=== PATIENT | male | born 1960 | race Caucasian/White ===

== ENCOUNTER 2019-08-06 10:29 | Outpatient (CLI) | payer OTHER, SELFPAY ==
--- NOTE | ~2019-08-06 | CT_ITS ---
EXAMINATION: CTA chest DATE: 08/06/2019 11:17 INDICATION: Aortic aneurysm of unspecified site without rupture TECHNIQUE: Computed tomography (CT) of the chest was performed with 100 cc Omnipaque 350 intravenous contrast. Automated exposure control and iterative reconstruction technique were employed. Exam dose: 688.95 mGy-cm total exam DLP. COMPARISON: None FINDINGS: There is aneurysm of the ascending thoracic aortic which measures up to 4.3 cm diameter. Th ere is normal caliber at the aortic arch and descending thoracic aorta. There is normal caliber of th e abdominal aorta into the proximal infrarenal area. There is no evidence of thoracic aortic or abdom inal aortic dissection or rupture. No hilar or mediastinal mass lesion or lymphadenopathy. Normal heart size. No pericardial or pleural effusion. The lungs are clear of infiltrate or consolidation or mass density. Normal morphology of the adrenal glands. Hepatic steatosis. The gallbladder is present. No bile duct or pancreatic duct dilatation. No hepatic , pancreatic, splenic space-occupying mass lesion. Small sliding hiatal hernia. IMPRESSION: 4.3 cm diameter thoracic ascending aortic aneurysm Reviewed, dictated and finalized at [facility] Reviewed, dictated and finalized at [facility].
[2019-08-06 11:08] LABS: Estimated Glomerular Filt Rate > 60
== END 2019-08-06 10:30 | disposition home or self-care (01) ==
PROVIDERS: PCP Internal Medicine; Visit Provider Internal Medicine
DX: I71.4 Abdominal aortic aneurysm, without rupture (principal)
CPT/HCPCS: 36415; 71275; Q9967

== ENCOUNTER 2019-10-24 15:25 | Emergency (ER) | payer OTHER, SELFPAY ==
[2019-10-24 15:42] VITALS: BP 118/99; PULSE 93; RESP 18; TEMP 36.7; O2SAT 96
[2019-10-24 15:47] VITALS: BP 128/88; PULSE 94; RESP 12; O2SAT 94
[2019-10-24] MEDS: EPINEPHrine HCL INJ 1 MG/ML AMPUL 0.3 MG IM (16:01)
[2019-10-24] MEDS: FAMOTIDINE 20 MG/2 ML VIAL IV PUSH (16:01)
[2019-10-24] MEDS: diphenhydrAMINE HCl INJ 50 MG/ML VIAL 25 MG IV PUSH (16:01)
[2019-10-24] MEDS: predniSONE 20 MG TABLET 60 MG PO (16:02)
--- NOTE | 2019-10-24 16:05 | ED.ALLEREA ---
HPI - Allergic Reaction General Chief complaint: Allergic Reaction Stated complaint: allergic reactoin Time Seen by Provider: 10/24/19 15:53 History of Present Illness HPI narrative: Stung on the right shoulder by a wasp around 1330 today. Since that time has developed diffuse itchy rash. He now feels like he is starting to swell in his throat. No SOB or difficulty breathing. He has no history of anaphylaxis or severe allergic reaction. Related Data Home Medications Medication Instructions Recorded Confirmed aspirin 81 mg tablet,delayed 81 mg PO DAILY 08/03/19 release Allergies Allergy/AdvReac Type Severity Reaction Status Date / Time amoxicillin Allergy Unknown Unknown Verified 10/24/19 15:46 venom-wasp protein Allergy Unknown Verified 10/24/19 15:46 Review of Systems Review of Systems: All systems reviewed & are unremarkable except as noted in HPI and below Constitutional: Constitutional: Denies fever(s) Cardiovascular: Cardiovascular: Denies chest pain Respiratory: Respiratory: Denies dyspnea Gastrointestinal: Gastrointestinal: Denies abdominal pain and Denies nausea Integumentary/Breasts: Skin/Breast: Reports rash Neurologic: Denies numbness and Denies weakness Allergic/Immunologic: Allergic/Immunologic: Denies lip swelling, Reports throat swelling and Denies tongue swelling PMFSH Past Medical History Medical History (Updated 10/24/19 @ 17:02 by Adebayo Winters MD) Aortic aneurysm Chronic GERD Social History Social History Smoking status: Former smoker Alcohol intake: never Substance use: never Gender identity (if verbalized by the patient): Male Sexual Orientation (if Verbalized by the Patient): Straight or Heterosexual Exam Const: General: healthy appearing, no acute distress and alert Orientation/consciousness: patient oriented x3 HENMT: Head: normal to inspection Neck: Neck: no lymphadenopathy Other: mild fullness. no stridor Chest: Chest palpation & inspection: no tenderness Resp: Effort & Inspection: normal respiratory effort Auscultation: clear to auscultation bilaterally, no rales, no rhonchi and no wheezes Cardio: Jugular venous distension: no JVD Rate: regular rate Rhythm: regular rhythm Heart sounds: no murmurs GI: Inspection: non-distended GI Palp: Yes Soft to palpation and No Tenderness to palpation present (GI) Skin: Other: diffuse urticaria Neuro: General: patient oriented x3 and moves all extremities Speech: normal speech Extrem: General: no edema Psych: Appearance: well kempt Affect: normal affect Course Course Emergency Course: On reeavlauation his symptoms have nearly resolved. He asked to be discharged. I informed him of the possiblity of a biphasic reaction. He expressed understanding and said that he would like to be discharged anyway. He agreed to make sure he was not alone for the next several hours and would come back if symptoms return. Vital Signs Vital signs: Vital Signs Temperature 36.7 C 10/24/19 15:42 Pulse Rate 93 10/24/19 15:42 Respiratory Rate 18 10/24/19 15:42 Blood Pressure 118/99 H 10/24/19 15:42 Pulse Oximetry 96 10/24/19 15:42 Temperature 36.7 C 10/24/19 15:42 Pulse Rate 85 10/24/19 16:11 Respiratory Rate 17 10/24/19 16:11 Blood Pressure 127/94 H 10/24/19 16:11 Pulse Oximetry 96 10/24/19 16:11 MDM - Allergic Reaction MDM Narrative Medical decision making narrative: Will treat for anaphylaxis and observe Medical Records Attestation: I reviewed the patient's medical records. Critical Care Time Critical Care Time Critical Care Time: Yes Total Critical Care Time: 45 Discharge Plan Discharge Clinical Impression: Anaphylaxis Qualifiers: Encounter type: initial encounter Qualified Code(s): T78.2XXA - Anaphylactic shock, unspecified, initial encounter Patient Disposition: Home, Self-Care Condition: Stab
[2019-10-24 16:11] VITALS: BP 127/94; PULSE 85; RESP 17; O2SAT 96
[2019-10-24 17:25] VITALS: BP 133/82; PULSE 91; RESP 16; O2SAT 94
== END 2019-10-24 17:28 | disposition home or self-care (01) ==
PROVIDERS: Emergency Provider Emergency Medicine; PCP Internal Medicine
DX: T63.461A Toxic effect of venom of wasps, accidental (unintentional), initial encounter (principal); T78.2XXA Anaphylactic shock, unspecified, initial encounter; K21.9 Gastro-esophageal reflux disease without esophagitis; Z87.891 Personal history of nicotine dependence
CPT/HCPCS: 96372; 96374; 96375; 99284; J0171; J1200; J7512

== ENCOUNTER 2020-02-11 00:21 | Outpatient (CLI) | payer OTHER, SELFPAY ==
[2020-02-11 19:24] LABS: SARS-CoV-2 RNA PCR Negative
== END 2020-02-11 00:22 | disposition home or self-care (01) ==
LOC: ANHCOVIDDT 00:21
PROVIDERS: PCP Internal Medicine; Visit Provider Internal Medicine Gastroenterology
DX: Z01.818 Encounter for other preprocedural examination (principal); Z20.828 Contact with and (suspected) exposure to other viral communicable diseases
CPT/HCPCS: 87635; C9803; U0003

== ENCOUNTER 2020-02-14 01:16 | Day surgery (SDC) | payer OTHER, SELFPAY ==
[2020-02-07 13:55] VITALS: BMI 30.8
[2020-02-14 06:45] VITALS: BP 128/89; PULSE 93; RESP 20; TEMP 36.3; O2SAT 97
[2020-02-14 06:47] VITALS: BMI 29.9
[2020-02-14] MEDS: LACTATED RINGERS 1,000 ML 150 ML IV CONT (06:55)
--- NOTE | 2020-02-14 07:54 | WPDANESEPPF ---
Anes - Initial Pre Proc Eval Procedure: Operation Date: 02/14/20 08:00 Proposed Procedures p Esophagogastroduodenoscopy & Screening Colon - Rigo Freed MD Date/Time: 02/14/20 07:54 Surgeon: Rigo Freed MD Pre Op Diagnosis: GERD, Neoplasm Screening Patient Data Age: 59 Gender: M Height: 6 ft 2 in Weight: 105.8 kg Last Vital Signs Temp 97.4 F L 02/14/20 06:45 Pulse 93 02/14/20 06:45 Resp 20 02/14/20 06:45 BP 128/89 02/14/20 06:45 Pulse Ox 97 02/14/20 06:45 Allergies Allergy/AdvReac Type Severity Reaction Status Date / Time amoxicillin Allergy Unknown Unknown Verified 02/14/20 06:41 venom-wasp protein Allergy Unknown Verified 02/14/20 06:41 Home Medications Medication Instructions Recorded Confirmed Type aspirin 81 mg tablet,delayed 81 mg PO DAILY 08/03/19 02/07/20 History release omeprazole 40 mg capsule,delayed 40 mg PO DAILY #30 cap 08/03/19 02/07/20 Rx release sodium,potassium,mag sulfates 17.5 See Rx Instructions PO .COMPLEX 01/25/20 02/07/20 Rx gram-3.13 gram-1.6 gram oral soln #354 ml Patient hx anesthesia problems: none Family hx anesthesia problems: none PMFSH Past Medical History Medical History (Updated 02/14/20 @ 07:54 by Aaron Andrews MD) Aortic aneurysm Chronic GERD KAMRAN (obstructive sleep apnea) Social History Social History Smoking packs per day: 1 Smoking cigarettes per day: 20.0 Years smoked: 6 Smoking pack-years: 6.00 Smoking status: Current every day smoker Tobacco type: cigarettes Alcohol intake: current Drinks per week: 1 Alcohol use details: once every 2 weeka Substance use: never Living arrangements: with family Gender identity (if verbalized by the patient): Male Spiritual care concerns: No Anes - Eval Final PreProcedure Day of Procedure 02/14/20 07:54 Patient weight: overweight Heart: regular rate and rhythm Lungs: clear to auscultation Airway: Mallampati scale class III Neurological: alert and oriented Last oral intake: >/= 8 hours ASA classification: III Emergent: no Anesthetic plan: proceed Anesthesia type and monitoring: general GIVS and standard monitoring Informed Consent: The patient's anesthetic plan and its attendant risks and benefits were discussed with the patient/family/POA. Questions were solicited and answers provided to the satisfaction of the patient/family/POA.
--- NOTE | 2020-02-14 07:56 | PM.HPGS ---
History of Present Illness History of Present Illness Consent: Risks, benefits, and alternatives have been discussed and questions answered. Patient agrees to proceed with procedure. Chief complaint: GERD, Neoplasm Screening Narrative: Gabe Chowdary is a 59 year old male with gerd but controlled with omeprazole, never had EGD. Also colon polyps. Review of Systems Constitutional: Constitutional: Denies headache(s) and Denies weakness Eyes: Eyes: Denies blurry vision ENT: Reports Normal hearing present, Denies headache(s) and Denies neck pain Cardiovascular: Cardiovascular: Denies chest pain and Denies dyspnea Respiratory: Respiratory: Denies dyspnea Gastrointestinal: Gastrointestinal: Reports no additional gastrointestinal complaints Genitourinary: Genitourinary: Denies dysuria Musculoskeletal: Musculoskeletal: Denies neck pain Integumentary/Breasts: Skin/Breast: Denies dry skin Neurologic: Reports Normal hearing present, Denies headache(s) and Denies weakness Psychiatric: Psychiatric: Denies anxiety Endocrine: Endocrine: Denies change in body appearance Hematologic/Lymphatic: Hematologic/Lymphatic: Denies easy bleeding Allergic/Immunologic: Allergic/Immunologic: Denies urticaria PMF Past Medical History Medical History (Updated 02/14/20 @ 07:54 by Aaron Andrews MD) Aortic aneurysm Chronic GERD KAMRAN (obstructive sleep apnea) Social History Social History Smoking packs per day: 1 Smoking cigarettes per day: 20.0 Years smoked: 6 Smoking pack-years: 6.00 Smoking status: Current every day smoker Tobacco type: cigarettes Alcohol intake: current Drinks per week: 1 Alcohol use details: once every 2 weeka Substance use: never Living arrangements: with family Gender identity (if verbalized by the patient): Male Spiritual care concerns: No Meds Home Medications and Allergies Home Medications Medication Instructions Recorded Confirmed Type aspirin 81 mg tablet,delayed 81 mg PO DAILY 08/03/19 02/07/20 History release omeprazole 40 mg capsule,delayed 40 mg PO DAILY #30 cap 08/03/19 02/07/20 Rx release sodium,potassium,mag sulfates 17.5 See Rx Instructions PO .COMPLEX 01/25/20 02/07/20 Rx gram-3.13 gram-1.6 gram oral soln #354 ml Allergies Allergy/AdvReac Type Severity Reaction Status Date / Time amoxicillin Allergy Unknown Unknown Verified 02/14/20 06:41 venom-wasp protein Allergy Unknown Verified 02/14/20 06:41 Vital Signs Vital Signs - 24 hr 02/14/20 06:45 Temperature 97.4 F L Pulse Rate 93 Respiratory Rate 20 Blood Pressure 128/89 Pulse Oximetry 97 Exam Const: General: comfortable and no acute distress HENMT: General nose exam: Normal nares present Eyes: General: appearance normal, both eyes and all related structures Neck: Neck: no JVD Resp: Auscultation: clear to auscultation bilaterally Cardio: Rate: regular rate Rhythm: regular rhythm GI: Inspection: non-distended GI Palp: Yes Soft to palpation Skin: General skin exam: normal color Neuro: General: gait normal Speech: normal speech Extrem: General: normal to inspection Psych: Mental Status: mental status grossly normal Assessment and Plan Assessment and plan (1) Chronic GERD: Code(s): K21.9 - Gastro-esophageal reflux disease without esophagitis Status: Acute Assessment and Plan: egd with bx (2) Hx of adenomatous colonic polyps: Code(s): Z86.010 - Personal history of colonic polyps Status: Acute Assessment and Plan: due to have a colonoscopy
[2020-02-14 08:31] VITALS: BP 91/59; PULSE 79; RESP 16; O2SAT 96
[2020-02-14 08:41] VITALS: BP 98/69; PULSE 76; RESP 18; O2SAT 96
[2020-02-14 08:51] VITALS: BP 113/74; PULSE 78; RESP 20; O2SAT 98
== END 2020-02-14 09:12 | disposition home or self-care (01) ==
PROVIDERS: PCP Internal Medicine; Visit Provider Internal Medicine Gastroenterology
PROC: 0DJ08ZZ Inspection of Upper Intestinal Tract, Via Natural or Artificial Opening Endoscopic (ICD-10-PCS; CPT 43235; principal; 2020-02-14 08:00)
DX: Z12.11 Encounter for screening for malignant neoplasm of colon (principal); K63.5 Polyp of colon; K64.4 Residual hemorrhoidal skin tags; K64.8 Other hemorrhoids; K29.50 Unspecified chronic gastritis without bleeding; K21.00 Gastro-esophageal reflux disease with esophagitis, without bleeding; K44.9 Diaphragmatic hernia without obstruction or gangrene; G47.33 Obstructive sleep apnea (adult) (pediatric); F17.210 Nicotine dependence, cigarettes, uncomplicated; Z79.82 Long term (current) use of aspirin
CPT/HCPCS: 45380; 43239; 88305; J2704; J7120

== ENCOUNTER 2020-06-30 15:59 | Observation (INO) | payer OTHER, SELFPAY ==
[2020-06-30] VITALS (12 sets, daily range): BP systolic 118–151; BP diastolic 71–98; PULSE 63–85; RESP 14–21; TEMP 36.4–36.8; O2SAT 97–99; BMI 30.7
--- NOTE | ~2020-06-30 | XR_ITS ---
EXAMINATION: XR chest 2V EXAM DATE: 06/30/2020 16:41 INDICATION: Left-sided chest pain, shortness of breath, symptoms 3 days. History hypertension aneurys m. TECHNIQUE: Frontal and lateral projections of the chest obtained and reviewed. Correlation is made to CTA chest 08/06/2019. FINDINGS: Bulging ascending aortic contour, patient's known ascending aortic aneurysm, dimension obt ained last year at 4.3 cm. The lungs are clear. There are no pleural effusions. The cardiomediastin al silhouette is within normal limits. There is no pneumothorax suspected. The bones and soft tissu es are unremarkable. IMPRESSION: Ascending aortic aneurysm. No acute cardiopulmonary findings. Reviewed, dictated and finalized at location [facility].
--- NOTE | ~2020-06-30 | CT_ITS ---
EXAMINATION: CTA chest EXAM DATE: 07/01/2020 10:48 INDICATION: Left-sided chest pain, known aortic aneurysm. TECHNIQUE: Spiral CT of the chest following intravenous injection of 100 mL Omnipaque 350. Axial, co shaniqua and sagittal images were reviewed. Maximum intensity projection 3-D reconstructions of the aort a were created by the technologist on dedicated workstation. Coronal maximum intensity pixel images of chest reviewed. The dose-length product (DLP) for this examination was 902.69 mGy-cm. The exposu re was tailored according to patient size (auto mA exposure control), and iterative reconstruction (A SIR) was used as additional dose reduction technique. Comparison is made to prior examination from . FINDINGS: The ascending aorta measures 4.8 cm as measured just below the level of the right main pul monary artery. This is unchanged compared to previous examination when measured at the same level. Th ere is no aortic dissection. Interval development of left upper lobe nodule measuring 1.2 cm, 20 Hounsfield units which is relativ esther low density for malignancy. Could be postinfectious or hamartoma. However given that it is new pr imary lung cancer should be considered; recommend PET/CT for further evaluation. The lungs are otherw ise clear. There are no pleural or pericardial effusions. Tracheobronchial tree is patent. There is no media stinal, hilar or axillary lymphadenopathy. There is no pneumothorax. Heart normal in size. Ther e is mild coronary arterial calcification, arterial sclerosis. There is hepatic steatosis. Small [place] within T11 unchanged. IMPRESSION: 1. Interval development of left upper lobe nodule, possible lung cancer. Recommend PET/CT for furthe r evaluation. 2. Stable ascending aortic fusiform 4.8 cm aneurysm. 3. Hepatic steatosis. 4. No acute findings. Reviewed, dictated and finalized at location A. IMPRESSION: 1. Interval development of left upper lobe nodule, possible lung cancer. Recom mend PET/CT for further evaluation. 2. Stable ascending aortic fusiform 4.8 cm aneurysm. 3. Hepatic steatosis. 4. No acute findings.
--- NOTE | 2020-06-30 16:07 | ECG_ITS ---
Measurements Intervals [place] Rate: 77 P: 37 TN: 164 QRS: -16 QRSD: 90 T: 40 QT: 358 QTc: 407 Interpretive Statements SINUS RHYTHM EARLY PRECORDIAL R/S TRANSITION BORDERLINE ECG Electronically Signed On 06-30-2020 16:11:58 CDT by Brendon Mitchell D.O.
[2020-06-30 16:24] LABS: Basophils Absolute Auto 0.1 K/mm3 (0.0-0.1); Eosinophils Absolute Auto 0.3 K/mm3 (0-0.3); Eosinophils Percent Auto 4.3 % (0-4.4); Hematocrit 46.8 % (42.0-52.0); Hemoglobin 16.4 g/dL (14.0-18.0); Immature Granulocyte Absolute 0.03 K/mm3 (0.00-0.031); Immature Granulocyte Percent A 0.4 % (0-0.5); Lymphocytes Absolute Auto 2.43 K/mm3 (0.9-3.2); Lymphocytes Percent Auto 34.5 % (18.3-44.2); Mean Corpuscular Hemoglobin 29.6 pg (26-34); Mean Corpuscular Volume 84.5 fl (80-100); Mean Platelet Volume 9.1 fl (7.4-10.4); Monocytes Absolute Auto 0.7 K/mm3 (0.1-0.6); Monocytes Percent Auto 9.6 % (2.6-8.5); Neutrophils Absolute Auto 3.5 K/mm3 (1.3-6.7); Neutrophils Percent Auto 50.2 % (45.5-73.1); Platelet Count Result 199 k/mm3 (150-375); Red Blood Count 5.54 M/mm3 (4.6-6.20); Red Cell Distribution Width 12.4 % (11.5-14.5); White Blood Count 7.1 K/mm3 (4.5-10.0)
[2020-06-30 16:39] LABS: Anion Gap 6 mmol/L (8-16); Blood Urea Nitrogen 15 mg/dL (9-20); Calcium 9.4 mg/dL (8.4-10.2); Carbon Dioxide 27 mmol/L (22-30); Chloride 105 mmol/L (98-107); Estimated CRCL calculation 78 ml/min; Estimated Glomerular Filt Rate > 60; Glucose 95 mg/dL (75-110); Potassium 4.1 mmol/L (3.4-5.0); Sodium 138 mmol/L (137-145)
[2020-06-30 16:47] LABS: INR 0.9; Prothrombin Time 12.4 Seconds (11.1-14.7)
[2020-06-30 16:48] LABS: Partial Thromboplastin Time 25.9 SECONDS (22.3-36.8)
[2020-06-30 16:49] LABS: Troponin I < 0.012 ng/mL (0.000-0.034)
--- NOTE | 2020-06-30 18:22 | ED.CHESTPAIN ---
HPI - Chest Pain General Chief Complaint: Chest Pain Stated Complaint: chest pain/sob with exertion/elevated bp Time Seen by Provider: 06/30/20 18:10 Source: patient Mode of arrival: ambulatory Limitations: no limitations History of Present Illness HPI narrative: Patient is a 59-year-old male complaining of chest pain, midsternal, pressure, 3 out of 10, currently 0 out of 10, accompanied by shortness of breath on exertion that started today. Patient states that shortness of breath he has noticed the past few days especially when walking to and from his driveway. Patient currently denies being short of breath, only on exertion. Patient denies any abdominal pain, nausea, vomiting, diaphoresis, fever or chills. Patient denies any extremity swelling. Related Data Home Medications Medication Instructions Recorded Confirmed aspirin 81 mg tablet,delayed 81 mg PO DAILY 08/03/19 02/07/20 release Allergies Allergy/AdvReac Type Severity Reaction Status Date / Time amoxicillin Allergy Unknown Unknown Verified 02/14/20 06:41 venom-wasp protein Allergy Unknown Verified 02/14/20 06:41 Review of Systems Review of Systems: All systems reviewed & are unremarkable except as noted in HPI and below Constitutional: Constitutional: Denies body ache(s), Denies chills, Denies excessive sweating, Denies fatigue, Denies fever(s), Denies headache(s), Denies lethargy, Denies malaise, Denies weakness and Denies weight loss Eyes: Eyes: Denies blurry vision, Denies change in vision and Denies loss of vision ENT: Denies dizziness, Denies ear discharge, Denies headache(s), Denies lip swelling, Denies epistaxis, Denies nasal congestion, Denies neck pain, Denies throat swelling and Denies tongue swelling Cardiovascular: Cardiovascular: Denies diaphoresis, Denies rapid heart rate, Denies edema, Denies irregular heart rhythm, Denies lightheadedness and Denies palpitations Respiratory: Respiratory: Denies chest congestion, Denies cough and Denies hemoptysis Gastrointestinal: Gastrointestinal: Denies abdominal pain, Denies melena, Denies hematochezia, Denies diarrhea, Denies nausea, Denies vomiting and Denies hematemesis Musculoskeletal: Musculoskeletal: Denies abnormal gait, Denies deformity, Denies joint swelling, Denies limited range of motion, Denies neck pain and Denies numbness Neurologic: Denies Abnormal speech present, Denies abnormal gait, Denies confusion, Denies dizziness, Denies headache(s), Denies focal weakness, Denies loss of vision, Denies numbness, Denies Other visual disturbances, Denies Sensory deficit (Neuro) and Denies weakness Psychiatric: Psychiatric: Denies confusion, Denies depression, Denies auditory hallucinations, Denies homicidal ideation and Denies suicidal ideation Endocrine: Endocrine: Denies cold intolerance, Denies excessive sweating, Denies fatigue, Denies heat intolerance and Denies palpitations Hematologic/Lymphatic: Hematologic/Lymphatic: Denies easy bleeding and Denies easy bruising Allergic/Immunologic: Allergic/Immunologic: Denies lip swelling, Denies throat swelling and Denies tongue swelling PMFSH Past Medical History Medical History Aortic aneurysm Chronic GERD KAMRAN (obstructive sleep apnea) Social History Social History Smoking packs per day: 1 Smoking cigarettes per day: 20.0 Years smoked: 6 Smoking pack-years: 6.00 Smoking status: Current every day smoker Tobacco type: cigarettes Alcohol intake: current Drinks per week: 1 Substance use: never Gender identity (if verbalized by the patient): Male Spiritual care concerns: No Exam Const: General: cooperative, healthy appearing, comfortable, no acute distress, well developed, alert and awake; No confusion Orientation/consciousness: oriented to person, oriented to place, oriented to time, patient oriented x3 and No confus
[2020-06-30 18:41] LABS: NT Pro B Type Natriuretic Pept 77 PG/ML (5-100)
[2020-06-30] MEDS: NITROGLYCERIN OINTMENT 1 INCH DOSE TRANSDERM (19:11)
[2020-06-30 19:30] LABS: Troponin I < 0.012 ng/mL (0.000-0.034)
[2020-06-30 22:21] LABS: Troponin I < 0.012 ng/mL (0.000-0.034)
--- NOTE | 2020-06-30 23:02 | ADMGEN ---
This patient, Gabe Chowdary, was admitted to IMU Room 203-01 on 06/30/2020 at 2115. Patient/family oriented to hospital policies and general routines including ID bracelet, bed and alarms, visiting hours, pain management, procedures, bathroom and other care routines, personal items, smoking policy, room service/diet, and visiting hours. Information on how to activate the Rapid Response Team has been discussed. Patient/Family are encouraged to report perceived risks to care and to ask questions if they do not understand what they are told or what they should do.
--- NOTE | 2020-06-30 23:37 | PM.IMHP ---
H&P: HPI History of Present Illness Date/Time: 06/30/20 23:37 this is a 59 here old male patient who has a history of aortic aneurysm. 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 The patient stated that his aneurysm has been stable for a long time. The patient did have a CT a pulmonary performed July of last year here that was read as 4.3 cm diameter thoracic ascending aortic aneurysm. The patient stated he has been monitoring blood pressure need typically is not high. He has not been on any blood pressure medicine. However he has gained some weight during this COVID pandemic. His been exercising less since the gyms close down during COVID. The patient stated that he has been short of breath when he walks upper down steps. This is especially true today. The patient has been less active. He did not have a sudden chest pain or sudden shortness of breath. Has dyspnea on exertion. The patient stated that he check his blood pressure today and was elevated. He said the 1st reading was 180/110. He tried to rest and was slightly lower but not much. That is when he decided to come in to the emergency room since he has an elevated blood pressure and has a history of this aneurysm. The patient stated that he had achiness the left chest. He did take anything for it at home. He attempted to rest and that did help. He stated when he pushes down on his chest that helps take away the pain as well. The patient had nitropaste applied in the emergency room and he said that helped as well. He said it is just an achiness. He has done anything extraneous activity or exercise. Two sets of troponins are negative so far. Chest x-ray was read as ascending aortic aneurysm no acute cardiopulmonary findings. And nitro paste in the emergency room. Cardiology has been consulted. Patient is admitted observation date of service of 06/30/2020 Chief Complaint: Chest pain Review of Systems Review of Systems: All systems reviewed & are unremarkable except as noted in HPI and below Constitutional: Constitutional: Reports as per HPI and Reports no additional constitutional complaints Eyes: Eyes: Reports as per HPI and Reports no additional eye complaints ENT: Reports system reviewed and no additional complaints, except as documented and Reports Normal hearing present Cardiovascular: Cardiovascular: Reports no additional cardiovascular complaints Respiratory: Respiratory: Reports no additional respiratory complaints and Reports no additional respiratory complaints Gastrointestinal: Gastrointestinal: Reports as per HPI and Reports no additional gastrointestinal complaints Musculoskeletal: Musculoskeletal: Reports no additional musculoskeletal complaints Integumentary/Breasts: Skin/Breast: Reports system reviewed and no additional complaints, except as docu and Reports as per HPI Neurologic: Reports system reviewed and no additional complaints, except as documented, Reports as per HPI and Reports Normal hearing present Psychiatric: Psychiatric: Reports no additional psychiatric complaints and Reports as per HPI Endocrine: Endocrine: Reports no additional endocrine complaints Hematologic/Lymphatic: Hematologic/Lymphatic: Reports no additional hematologic/lymphatic complaints Allergic/Immunologic: Allergic/Immunologic: Reports no additional allergic/immunologic complaints [facility] Past Medical History Medical History (Updated 06/30/20 @ 23:44 by Madina Minor NP) Aortic aneurysm Chronic GERD KAMRAN (obstructive sleep apnea) Tobacco use disorder Surgical History Surgical History (Updated 06/30/20 @ 23:52 by Madina Minor NP) H/O colonoscopy with polypectomy S/P tonsillectomy and adenoidectomy Family History Family History (Updated 06/30/20 @ 23:47 by Madina Minor NP) Mother History of blood clots Acute myocardial infarction Congestive heart failure Fath
[2020-07-01] VITALS (16 sets, daily range): BP systolic 105–152; BP diastolic 62–96; PULSE 65–76; RESP 16–23; TEMP 36.2–36.5; O2SAT 95–98
--- NOTE | 2020-07-01 | ECHO_ITS ---
Patient Info Name: Gabe Chowdary Age: 59 years : 1960 Gender: Male Ht: 75 in Wt: 245 lbs BSA: 2.45 m2 HR: 65 bpm BP: 105 / 62 mmHg Heart Rhythm: Sinus Rhythm Technical Quality: Good Exam Date: 07/01/2020 8:40 AM Exam Location: [facility] Pulmonary Exam Room: 203 Patient Status: Inpatient Admit Date: 06/30/2020 Staff Ordering Physician: Madina Minor NP Tile Fitter: Heidi Beckham RDCS Attending Provider: Anahi Knapp DO Referring Physician: Iván GUILLEN; Exam Type: CA echo doppler color flow Study Info Indications - [place] HX/O AORTIC ANEURYSM Complete two-dimensional, color flow and Doppler transthoracic echocardiogram is performed. Summary 1. Complete two-dimensional, color flow and Doppler transthoracic echocardiogram is performed. 2. Left ventricular systolic function is normal, estimated at 60-65%. 3. There is upper limits normal left ventricular wall thickness. 4. The left ventricular diastolic function is grade I diastolic dysfunction. 5. There is mild aortic valve regurgitation. 6. There is no aortic valve stenosis. 7. The prox ascending aorta size is moderately dilated at 4.6cm. 8. The aortic root size at the sinus of Valsalva is normal at 3.5cm.. Left Ventricle Left ventricular chamber dimension is normal. Left ventricular systolic function is normal, estimated at 60-65%. There is upper limits normal left ventricular wall thickness. The left ventricular diastolic function is grade I diastolic dysfunction. Global longitudinal strain is normal at -19 %. Right Ventricle Right ventricular chamber dimension is normal. Right ventricular systolic function is normal. Left Atria Left atrial chamber dimension is mildly enlarged. Right Atria Right atrial chamber dimension is mildly enlarged. Atrial Septum Thin and hypermobile. Aortic Valve The aortic valve is not well visualized. There is no aortic valve stenosis. There is mild aortic valve regurgitation. Pulmonic Valve The pulmonic valve is not well visualized. There is trace pulmonic regurgitation. Mitral Valve The mitral valve has normal leaflets. There is trace mitral valve regurgitation. The mitral valve annulus is mildly calcified. Tricuspid Valve The tricuspid valve leaflets are normal. There is trace tricuspid valve regurgitation. No pulmonary hypertension, estimated pulmonary arterial systolic pressure is 28 mmHg. Pericardium/Pleural The pericardium appears normal. There is no pericardial effusion. Inferior Vena Cava Normal inferior vena cava with >50% collapse upon inspiration consistent with normal right atrial pressure, 5 mmHg. Aorta The aortic root size at the sinus of Valsalva is normal at 3.5cm.. The prox ascending aorta size is moderately dilated at 4.6cm. There is mild aortic atherosclerosis. Left Ventricular Outflow Tract Name Value Normal LVOT 2D LVOT Diameter 2.1 cm LVOT Doppler LVOT Peak Gradient 4 mmHg LVOT Mean Gradient 2 mmHg LVOT VTI 22 cm LVOT VTI/A
[2020-07-01] MEDS: METOPROLOL TARTRATE 6.25 MG TABLET PO ×2 (00:44→09:21)
[2020-07-01] MEDS: ACETAMINOPHEN 325 MG TABLET 650 MG PO (01:03)
--- NOTE | 2020-07-01 03:39 | PCRCNOTE ---
patient refused use of hospital unit and stated that he does not use one at home; RT explained the purpose/benefits of use to no avail; RN was notified
[2020-07-01 05:00] LABS: Basophils Absolute Auto 0.1 K/mm3 (0.0-0.1); Eosinophils Absolute Auto 0.4 K/mm3 (0-0.3); Eosinophils Percent Auto 4.8 % (0-4.4); Hematocrit 43.3 % (42.0-52.0); Hemoglobin 14.9 g/dL (14.0-18.0); Immature Granulocyte Absolute 0.03 K/mm3 (0.00-0.031); Immature Granulocyte Percent A 0.4 % (0-0.5); Lymphocytes Absolute Auto 2.86 K/mm3 (0.9-3.2); Lymphocytes Percent Auto 39.4 % (18.3-44.2); Mean Corpuscular HGB Conc 34.4 g/dl (32-36); Mean Corpuscular Hemoglobin 29.4 pg (26-34); Mean Corpuscular Volume 85.4 fl (80-100); Mean Platelet Volume 9.4 fl (7.4-10.4); Monocytes Absolute Auto 0.7 K/mm3 (0.1-0.6); Monocytes Percent Auto 9.4 % (2.6-8.5); Neutrophils Absolute Auto 3.3 K/mm3 (1.3-6.7); Platelet Count Result 187 k/mm3 (150-375); Red Blood Count 5.07 M/mm3 (4.6-6.20); Red Cell Distribution Width 12.5 % (11.5-14.5); White Blood Count 7.3 K/mm3 (4.5-10.0)
[2020-07-01 05:19] LABS: Anion Gap 3 mmol/L (8-16); Blood Urea Nitrogen 17 mg/dL (9-20); Calcium 8.4 mg/dL (8.4-10.2); Carbon Dioxide 30 mmol/L (22-30); Chloride 103 mmol/L (98-107); Estimated CRCL calculation 78 ml/min; Estimated Glomerular Filt Rate > 60; Glucose 95 mg/dL (75-110); Magnesium 1.8 mg/dL (1.6-2.3); Potassium 4.2 mmol/L (3.4-5.0); Sodium 136 mmol/L (137-145)
[2020-07-01] MEDS: MULTIVITS W-FE,MIN CHEWABLE TABLET 2 TABLET PO (09:21)
[2020-07-01] MEDS: PANTOPRAZOLE 40 MG TABLET PO (09:21)
[2020-07-01] MEDS: ENOXAPARIN 40 MG/0.4 ML SYRINGE SUB-Q (09:22)
[2020-07-01] MEDS: CYANOCOBALAMIN 1,000 MCG TABLET 5000 MCG PO (09:22)
[2020-07-01] MEDS: CHOLECALCIFEROL 1,000 UNITS TABLET 4000 UNITS PO (09:22)
--- NOTE | 2020-07-01 14:01 | PM.DS ---
DS: Admitting Diagnosis Admitting Diagnosis Admitting Diagnosis: DISCHARGE DATE 07/02/2020 Chest pain DS: Discharge Diagnosis Discharge Diagnosis (1) Hypertensive urgency: Code(s): I16.0 - Hypertensive urgency Status: Acute Assessment and Plan: The patient had nitropaste earlier. Bp is stable at 129/81. Pt started on metoprolol increased dose to 25mg po bid continue on this dose on discharge. (2) Chest pain: Qualifiers: Chest pain type: unspecified Qualified Code(s): R07.9 - Chest pain, unspecified Code(s): R07.9 - Chest pain, unspecified Status: Resolved Assessment and Plan: Troponins are negative x2 so far. The patient typically has an annual CT a for his aortic aneurysm. CT scan here shows 1. Interval development of left upper lobe nodule, possible lung cancer. Recommend PET/CT for further evaluation. 2. Stable ascending aortic fusiform 4.8 cm aneurysm. 3. Hepatic steatosis. 4. No acute findings. No further chest pain pt wants to go home. Pt to follow with pulmology, cardiology and PCP, pt will need to establish new doctors here as he is from [place]. (3) Chronic GERD: Code(s): K21.9 - Gastro-esophageal reflux disease without esophagitis Status: Acute Assessment and Plan: Continue with a PPI pain (4) Aortic aneurysm: Code(s): I71.9 - Aortic aneurysm of unspecified site, without rupture Status: Acute Assessment and Plan: Attempting to get records from [facility] in [place] to compare the size of his aortic aneurysm. DS: Summary Hospital Course Hospital Course: 59 here old male patient who has a history of aortic aneurysm. 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 Pt admitted with high BPs and chest pain, pt had a stat CT chest which showed AAA size of 4.8 cm and pulmology nodule. Pt wants to establish with cardiology and pulmonology here. Given folow up apts in 1 months time Time Spent with Patient Time attestation: Total time spent providing and/or coordinating discharge services:40 minutes on day of discharge Exam Const: General: cooperative, healthy appearing and Physically active Nutritional Appearance: well nourished Orientation/consciousness: oriented to person, oriented to place, oriented to time and patient oriented x3 Limitations: no limitations Chest: Chest palpation & inspection: normal inspection of the chest Resp: Effort & Inspection: normal respiratory effort Auscultation: clear to auscultation bilaterally Percussion: percussion normal Cardio: Palpation: normal PMI Rate: regular rate Rhythm: regular rhythm Heart sounds: S1 normal heart sound present and S2 normal heart sound present Peripheral pulses: Peripheral pulses 2+ throughout Skin: General skin exam: normal color Lesions: no lesions Rashes: no rashes Trauma: no lacerations or abrasions Wounds: no wounds Hair: normal Nails: normal DS: Data Data Completed and Pending Labs on day of discharge: Labs from last 24 hours 07/01/20 07/01/20 07/01/20 04:26 04:26 04:26 WBC 7.3 RBC 5.07 Hgb 14.9 Hct 43.3 MCV 85.4 MCH 29.4 MCHC 34.4 RDW 12.5 Plt Count 187 MPV 9.4 Immature Gran % (Auto) 0.4 Neut % (Auto) 45.0 L Lymph % (Auto) 39.4 Buchanan % (Auto) 9.4 H Eos % (Auto) 4.8 H Baso % (Auto) 1.0 Lymph # (Auto) 2.86 Buchanan # (Auto) 0.7 H Eos # (Auto) 0.4 H Baso # (Auto) 0.1 Abs Immat Gran (auto) 0.03 Absolute Neuts (auto) 3.3 Absolute Nucleated RBC 0.0 Nucleated RBC % 0.0 PT INR APTT Sodium 136 L Potassium 4.2 Chloride 103 Carbon Dioxide 30 Anion Gap 3 L BUN 17 Creatinine 1.20 Estim Creat Clear Calc 78 Estimated GFR > 60 Glucose 95 Calcium 8.4 Magnesium 1.8 Troponin I NT-Pro-B Natriuret Pep TSH (Reflex) 2.720
--- NOTE | 2020-07-01 14:17 | PM.IMPN ---
Progress Note: A&P Assessment and Plan (1) Hypertensive urgency: Code(s): I16.0 - Hypertensive urgency Status: Acute Assessment and Plan: The patient had nitropaste earlier. Bp is stable at 129/81. Pt started on metoprolol continue on discharge. 1. Interval development of left upper lobe nodule, possible lung cancer. Recommend PET/CT for further evaluation. 2. Stable ascending aortic fusiform 4.8 cm aneurysm. 3. Hepatic steatosis. 4. No acute findings. Pt prefers to see pulmonology before dischrage. (2) Chest pain: Qualifiers: Chest pain type: unspecified Qualified Code(s): R07.9 - Chest pain, unspecified Code(s): R07.9 - Chest pain, unspecified Status: Resolved Assessment and Plan: Troponins are negative x2 so far. The patient typically has an annual CT a for his aortic aneurysm. CT scan here shows No further chest pain pt wants to go home. (3) Chronic GERD: Code(s): K21.9 - Gastro-esophageal reflux disease without esophagitis Status: Acute Assessment and Plan: Continue with a PPI pain (4) Aortic aneurysm: Code(s): I71.9 - Aortic aneurysm of unspecified site, without rupture Status: Acute Assessment and Plan: Attempting to get records from [facility] in [place] to compare the size of his aortic aneurysm. Subjective Date/time seen: 07/01/20 14:17 Interval history: 59 here old male patient who has a history of aortic aneurysm. 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 Review of Systems Review of Systems: All systems reviewed & are unremarkable except as noted in HPI and below Constitutional: Constitutional: Reports as per HPI and Reports no additional constitutional complaints Exam Const: General: cooperative Orientation/consciousness: oriented to person, oriented to place, oriented to time and patient oriented x3 Chest: Chest palpation & inspection: normal inspection of the chest Resp: Effort & Inspection: normal respiratory effort Auscultation: clear to auscultation bilaterally Cardio: Rate: regular rate Rhythm: regular rhythm Heart sounds: S1 normal heart sound present and S2 normal heart sound present Peripheral pulses: Peripheral pulses 2+ throughout GI: Inspection: normal to inspection Auscultation: normal bowel sounds Neuro: General: oriented to person, oriented to place, oriented to time and patient oriented x3 Cranial nerves: Yes Equal, round and reactive pupils present and Yes Normal hearing present Cognition (Neuro): normal cognition Speech: normal speech Gait exam (Neuro): Normal gait present Motor exam (neuro): 5/5 motor strength present throughout Sensory Exam: normal sensation Extrem: General: normal to inspection Right upper extremity: normal to inspection Left upper extremity: normal to inspection Right lower extremity: normal to inspection Left lower extremity: normal to inspection Psych: Appearance: grossly normal Mental Status: mental status grossly normal Speech and movement: Normal speech and movement present Affect: normal affect Attitude: cooperative Thought process: Normal thought process present Insight: Good insight present (Psych) Judgement: Good judgement present (Psych) Objective Data Vital Signs Vital Signs: Vital Signs - 24 hr 06/30/20 16:14 06/30/20 19:00 06/30/20 19:15 Temperature 36.4 C L 36.6 C Pulse Rate 80 76 78 Respiratory Rate 18 14 Blood Pressure 138/71 151/91 H Pulse Oximetry 99 99 98 06/30/20 19:20 06/30/20 19:31 06/30/20 20:01 Temperature Pulse Rate 72 80 81 Respiratory Rate 14 21 H 19 Blood Pressure 142/98 H 135/97 H 138/90 Pulse Oximetry 06/30/20 20:15 06/30/20 21:01 06/30/20 21:15 Temperature 36.8 C Pulse Rate 77 85 63 Respiratory Rate 17 16 20 Blood Pressure 128/89 150/78 H Pulse Oximetry 97 98 06/30/20 21:46
--- NOTE | 2020-07-01 17:00 | PC.NURSE ---
This patient, Gabe Chowdary, was received from [facility] on 07/01/20 at 1700. Patient/family oriented to unit policies and routines. Report recieved from Kathy PATINO.
--- NOTE | 2020-07-01 17:10 | PC.NURSE ---
This patient, Gabe Chowdary, was transferred to [facility] on 07/01/20 at 1700. Personal belongings sent with patient. Report given to Ruthy PATINO. Appropriate documentation sent with patient.
[2020-07-01] MEDS: ASPIRIN 81 MG ENTERIC TABLET PO (17:22)
[2020-07-01] MEDS: METOPROLOL TARTRATE 25 MG TABLET PO (20:27)
[2020-07-01] MEDS: hydrALAZINE HCL 20 MG/ML VIAL 10 MG IV PUSH (21:52)
[2020-07-02 06:00] VITALS: BP 124/85; PULSE 73; RESP 18; TEMP 36.4; O2SAT 97
[2020-07-02 08:08] VITALS: PULSE 80
[2020-07-02] MEDS: METOPROLOL TARTRATE 25 MG TABLET PO (08:08)
[2020-07-02] MEDS: CHOLECALCIFEROL 1,000 UNITS TABLET 4000 UNITS PO (08:09)
[2020-07-02] MEDS: ENOXAPARIN 40 MG/0.4 ML SYRINGE SUB-Q (08:09)
[2020-07-02] MEDS: MULTIVITS W-FE,MIN CHEWABLE TABLET 2 TABLET PO (08:09)
[2020-07-02] MEDS: PANTOPRAZOLE 40 MG TABLET PO (08:10)
[2020-07-02] MEDS: CYANOCOBALAMIN 1,000 MCG TABLET 5000 MCG PO (08:14)
--- NOTE | 2020-07-25 16:06 | PM.EVENT ---
Event Note Event Note Event Note: I did not see this patient in consultation. His name is on my deficiency list. I did not see him, so no consult note will be created. Thank you.
== END 2020-07-02 13:22 | disposition home or self-care (01) ==
LOC: ANHED 20:01 → ANHIMU 23:00 → ANH3MEDSUR 07-02 11:31 → ANHIMU 07-04 12:44
PROVIDERS: Nurse Practitioner; Admitting Provider Internal Medicine; Emergency Provider Emergency Medicine; PCP Internal Medicine; Visit Provider Family Medicine
DX: I16.0 Hypertensive urgency (principal); R07.9 Chest pain, unspecified; R06.02 Shortness of breath; G47.33 Obstructive sleep apnea (adult) (pediatric); I71.4 Abdominal aortic aneurysm, without rupture; I35.1 Nonrheumatic aortic (valve) insufficiency; K21.9 Gastro-esophageal reflux disease without esophagitis; F17.210 Nicotine dependence, cigarettes, uncomplicated; Z79.82 Long term (current) use of aspirin
CPT/HCPCS: 36415; 71046; 71275; 80048; 83735; 83880; 84443; 84484; 85025; 85610; 85730; 93005; 93306; 96372; 96374; 99285; A9270; G0378; J0360; J1650; Q9967

== ENCOUNTER 2020-07-03 10:51 | Outpatient (CLI) | payer OTHER, SELFPAY | END 2020-07-03 10:52 | disposition home or self-care (01) | LOC: ANHCOVIDVC 10:51 | PROVIDERS: PCP Internal Medicine | DX: Z23 Encounter for immunization (principal) | CPT/HCPCS: 0001A; 91300 ==

== ENCOUNTER 2020-07-04 10:08 | Outpatient (CLI) | payer OTHER, SELFPAY ==
--- NOTE | ~2020-07-04 | XR_ITS ---
EXAMINATION: XR abdomen/kub 1V EXAM DATE: 07/04/2020 10:38 INDICATION: Bilateral flank pain, history kidney stones. TECHNIQUE: Frontal projection(s) of the abdomen for interpretation. There is no prior study for milind hillman. FINDINGS: There is a 3 mm calcific density projecting above the right L3 transverse process, could b e a proximal ureteral stone. This finding has been indicated, marked on the examination for review, c linical correlation. Some stool overlying the renal contours, but no calcific densities identified th ere. Pelvic calcifications are probably phleboliths. Nonobstructive bowel gas pattern. There is no or ganomegaly. IMPRESSION: 1. Possible left ureteral 3 mm stone proximally. Reviewed, dictated and finalized at location A.
[2020-07-04 11:07] LABS: Appearance Urine Clear (Clear); Bilirubin Urine Negative (Negative); Blood Urine Negative (Negative); Color Urine Yellow (Yellow); Glucose Urine UA Negative (Negative); Ketones Urine Negative (Negative); Leukocyte Esterase Ur Negative LEU/UL (Negative); Nitrate Urine Negative (Negative); Protein Urine Negative (Negative); Specific Grav Ur 1.025 (1.001-1.035); Urobilinogen Urine 0.2 mg/dL (<2.0)
[2020-07-04 12:33] LABS: Add Urine Microscopic? NO
== END 2020-07-04 10:09 | disposition home or self-care (01) ==
LOC: ANHLAB 10:11
PROVIDERS: PCP Internal Medicine; Visit Provider Internal Medicine
DX: R10.9 Unspecified abdominal pain (principal)
CPT/HCPCS: 74018; 81003

== ENCOUNTER 2020-07-07 07:39 | Outpatient (CLI) | payer OTHER, SELFPAY ==
--- NOTE | ~2020-07-07 | CT_ITS ---
EXAMINATION: CT abdomen pelvis wo con DATE: 07/07/2020 08:04 INDICATION: Calculus of the kidney TECHNIQUE: Computed tomography (CT) of the abdomen and pelvis was performed without intravenous contr ast. The dose-length product (DLP) was 444.24 mGy-cm. Automated exposure control and iterative recons truction technique were employed. COMPARISON: 09/28/2018 FINDINGS: Minimal dependent atelectasis is present in the lung bases. The heart size is normal. There is a small sliding hiatal hernia. The liver, spleen, pancreas, gallbladder, and adrenal glands are n ormal. The kidneys are normal. No stones are identified in the kidneys, ureters, or bladder. There is no hydronephrosis or hydroureter. A previously described 2 mm stone of the left kidney lower pole is no longer seen. No pathologically enlarged abdominal or pelvic lymph nodes are identified. There is no free intraperitoneal gas or evidence of bowel obstruction. There is mild lumbar spondylosis. There is a small fat-containing umbilical hernia. A large volume of colonic stool is present. IMPRESSION: 1. No urolithiasis identified. Reviewed, dictated and finalized at location B.
== END 2020-07-07 07:40 | disposition home or self-care (01) ==
PROVIDERS: PCP Internal Medicine; Visit Provider Internal Medicine
DX: N20.0 Calculus of kidney (principal)
CPT/HCPCS: 74176

== ENCOUNTER 2020-07-24 10:55 | Outpatient (CLI) | payer OTHER, SELFPAY | END 2020-07-24 10:56 | disposition home or self-care (01) | LOC: ANHCOVIDVC 10:56 | PROVIDERS: PCP Internal Medicine | DX: Z23 Encounter for immunization (principal) | CPT/HCPCS: 0002A; 91300 ==

== ENCOUNTER 2020-08-03 11:38 | Outpatient (CLI) | payer OTHER, SELFPAY ==
--- NOTE | ~2020-08-03 | PE_ITS ---
EXAMINATION: PET skull to mid thigh DATE: 08/03/2020 13:57 INDICATION: Lung nodule. TECHNIQUE: Blood glucose level was 99 mg/dL. 9.904 mCi of 18-fluorodeoxyglucose (18-FDG) was administ ered i.v. Low dose computed tomography (CT) images were acquired from the base of the brain to the pr oximal thighs for attenuation correction and anatomic localization. Automated exposure control was em ployed. Dose-length product (DLP) was 1007 mGy-cm. Positron emission tomography (PET) images were acq uired in the same distribution. COMPARISON: Chest CT 07/01/2020, CT abdomen and pelvis 07/07/2020 FINDINGS: Head/neck: There is increased activity in the oral cavity, sublingual glands, lingual tonsils, and gl ottis without CT correlate, likely physiologic. There are no pathologically enlarged lymph nodes. Chest: Calcified right lung nodules are consistent with old granulomatous disease. There is mild atel ectasis bilaterally. There is a 13 mm nodule in left upper lobe without increased activity. There is left hilar lymphadenopathy. For example, a 1.8 x 1.5 cm left hilar node demonstrates maximum SUV of 6 .1. No pleural effusion. There is a small sliding hiatal hernia. The heart size is normal. No pericar dial effusion. There is ectasia of ascending aorta measuring 4.5 cm. Abdomen/pelvis/proximal thighs: The liver, gallbladder, spleen, pancreas, adrenal glands, and kidneys are normal. The prostate is mildly enlarged. There are no dilated loops of bowel. The appendix is no rmal. There are no pathologically enlarged lymph nodes. There is no free intraperitoneal fluid. There is moderate lumbar spondylosis. 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 IMPRESSION: 1. 13 mm left upper lobe pulmonary nodule without increased activity, new from 08/06/2019 and stable f rom 07/01/20, suspicious for primary bronchogenic carcinoma. CT-guided biopsy is recommended. 2. Left hilar lymphadenopathy with increased activity, suspicious for metastatic disease. Reviewed, dictated and finalized at location B. IMPRESSION: 1. 13 mm left upper lobe pulmonary nodule without increased activity, new from 08/06/2019 and stable from 07/01/20, suspicious for primary bronchogenic carcinom a. CT-guided biopsy is recommended. 2. Left hilar lymphadenopathy with increased activity, suspicious for metastati c disease.
[2020-08-03 12:28] LABS: Glucose Point of Care 99 (65-105)
== END 2020-08-03 11:39 | disposition home or self-care (01) ==
PROVIDERS: PCP Internal Medicine; Visit Provider Internal Medicine
DX: R91.1 Solitary pulmonary nodule (principal)
CPT/HCPCS: 78815; 82948; A9552

== ENCOUNTER → 2020-08-14 12:00 | Outpatient (CLI) | payer OTHER, SELFPAY ==
[2020-08-16 12:49] LABS: SARS-CoV-2 RNA PCR Negative
== END ==
PROVIDERS: PCP Internal Medicine; Visit Provider Internal Medicine
DX: Z01.812 Encounter for preprocedural laboratory examination (principal); Z20.822 Contact with and (suspected) exposure to COVID-19
CPT/HCPCS: C9803; U0003; U0005

== ENCOUNTER 2020-08-17 07:43 | Outpatient (CLI) | payer OTHER, SELFPAY ==
[2020-08-11 11:15] VITALS: BMI 31.4
[2020-08-17] VITALS (11 sets, daily range): BP systolic 125–145; BP diastolic 73–95; PULSE 51–60; RESP 18; O2SAT 95–100
--- NOTE | ~2020-08-17 | XR_ITS ---
EXAMINATION: XR chest 1V DATE: 08/17/2020 10:28 INDICATION: Status post percutaneous left lung biopsy TECHNIQUE: AP view of the chest was obtained. COMPARISON: Chest radiograph dated 06/30/2020 FINDINGS: The small biopsied left upper lobe nodule projects over the left hilum and anterior left third rib. C alcified nodules in the right midlung zone consistent with old granulomatous disease. No other airspa ce opacities, pulmonary edema, pleural effusion or pneumothorax. The cardiomediastinal silhouette is normal. Visualized bones and soft tissues are unremarkable. IMPRESSION: 1. No pneumothorax or other acute cardiopulmonary disease post BX scans biopsy of an indeterminate le ft upper lobe nodule. Reviewed, dictated and finalized at location A. IMPRESSION: 1. No pneumothorax or other acute cardiopulmonary disease post BX scans biopsy of an indeterminate left upper lobe nodule.
--- NOTE | ~2020-08-17 | XR_ITS ---
EXAMINATION: XR chest 1V portable DATE: 08/17/2020 13:31 INDICATION: Status post left lung biopsy TECHNIQUE: frontal view of the chest was obtained. COMPARISON: Chest radiograph dated 08/17/2020 11:43 AM FINDINGS: The previous the biopsied nodule projects over the left hilum with more peripheral extension of a don ear band of discoid atelectasis. Calcified right lung nodule consistent with old granulomatous diseas e. No other airspace opacities, pulmonary edema, pleural effusion or pneumothorax. The cardiomediasti nal silhouette is normal. IMPRESSION: 1. No pneumothorax or other acute cardiopulmonary disease post percutaneous biopsy of an indeterminat e left upper lobe nodule. Reviewed, dictated and finalized at location A. IMPRESSION: 1. No pneumothorax or other acute cardiopulmonary disease post percutaneous bio psy of an indeterminate left upper lobe nodule.
--- NOTE | ~2020-08-17 | XR_ITS ---
EXAMINATION: XR chest 1V portable DATE: 08/17/2020 11:41 INDICATION: Status post percutaneous left lung biopsy TECHNIQUE: frontal view of the chest was obtained. COMPARISON: Chest radiograph dated 08/17/2020 at 10:26 AM FINDINGS: Enhancing prostate biopsy of small upper lobe nodule projecting over the left hilum at the medial kate e of a linear band of discoid atelectasis/scarring in the left midlung zone. Small calcified nodules at the left apex and right midlung zone consistent with old granulomatous disease. No other airspace opacities, pulmonary edema, pleural effusion or pneumothorax. The cardiomediastinal silhouette is nor mal. Visualized bones and soft tissues are unremarkable. IMPRESSION: 1. No pneumothorax or other acute cardiopulmonary disease post percutaneous biopsy of an indeterminat e left upper lobe nodule. Reviewed, dictated and finalized at location A. IMPRESSION: 1. No pneumothorax or other acute cardiopulmonary disease post percutaneous bio psy of an indeterminate left upper lobe nodule.
--- NOTE | ~2020-08-17 | CT_ITS ---
EXAMINATION: CT biopsy lung w/imaging DATE: 08/17/2020 10:23 INDICATION: Left upper lobe nodule TECHNIQUE: The procedure including the risks and benefits was discussed with the patient. Risks discu ssed included infection, approximately 1/20 risk of symptomatic hemorrhage beyond mild hemoptysis, ap proximately 1/3 risk of pneumothorax, and approximately 1/10 risk of pneumothorax severe enough to wa rrant chest tube placement. The patient understood the risks and agreed to proceed. The patient was p laced supine. The skin overlying the 3 left chest was prepped and draped in sterile fashion. Anesth etic was administered with 1% lidocaine subcutaneously. A 19 gauge outer needle was advanced under C T guidance to the lesion of interest. A 20 gauge core biopsy needle was then used to obtain 3 core bi opsy specimens. The needle was removed and the entry site was cleaned and dressed. There were no imm ediate complications. The dose-length product was 153.30 mGy-cm. FINDINGS: CT images demonstrate the outer needle tip adjacent to a 1.5 cm left upper lobe nodule. IMPRESSION: 1. Successful CT-guided biopsy of the 1.5 similar left upper lobe nodule of concern.. Reviewed, dictated and finalized at location A. IMPRESSION: 1. Successful CT-guided biopsy of the 1.5 similar left upper lobe nodule of con cern..
[2020-08-17 08:14] LABS: Basophils Absolute Auto 0.1 K/mm3 (0.0-0.1); Basophils Percent Auto 1.2 % (0.2-1.2); Eosinophils Absolute Auto 0.2 K/mm3 (0-0.3); Eosinophils Percent Auto 4.8 % (0-4.4); Hematocrit 43.9 % (42.0-52.0); Hemoglobin 14.8 g/dL (14.0-18.0); Immature Granulocyte Absolute 0.03 K/mm3 (0.00-0.031); Immature Granulocyte Percent A 0.6 % (0-0.5); Lymphocytes Absolute Auto 1.71 K/mm3 (0.9-3.2); Lymphocytes Percent Auto 34.1 % (18.3-44.2); Mean Corpuscular HGB Conc 33.7 g/dl (32-36); Mean Corpuscular Hemoglobin 29.4 pg (26-34); Mean Corpuscular Volume 87.1 fl (80-100); Mean Platelet Volume 9.3 fl (7.4-10.4); Monocytes Absolute Auto 0.5 K/mm3 (0.1-0.6); Monocytes Percent Auto 9.2 % (2.6-8.5); Neutrophils Absolute Auto 2.5 K/mm3 (1.3-6.7); Neutrophils Percent Auto 50.1 % (45.5-73.1); Platelet Count Result 194 k/mm3 (150-375); Red Blood Count 5.04 M/mm3 (4.6-6.20); Red Cell Distribution Width 13.3 % (11.5-14.5)
[2020-08-17 08:22] LABS: INR 0.9; Prothrombin Time 13.2 Seconds (11.1-14.7)
== END 2020-08-17 14:28 | disposition home or self-care (01) ==
PROVIDERS: Radiology Diagnostic Radiology; PCP Internal Medicine; Visit Provider Internal Medicine
DX: R91.1 Solitary pulmonary nodule (principal)
CPT/HCPCS: 32408; 36415; 71045; 85025; 85610; 88305; 88312

== ENCOUNTER 2020-08-30 08:08 | Outpatient (CLI) | payer OTHER, SELFPAY ==
--- NOTE | 2020-08-31 08:35 | WPDSIXMINUTE ---
Six Minute Walk Procedure Procedure Performed Pulmonary Stress Test (6 min walk) Six Minute Walk Six Minute Walk: DOS: 08/30/2020 REQUESTING: Dr. Land REASON: Lung nodule SIX MINUTE WALK This study was conducted per ATS standards. The initial saturation is 94% and the pulse is 60. The patient walked for 6 minutes without stopping to rest. There was no drop in saturation. Heart rate increased to 109, and returned to baseline during recovery. Distance walked was 487 m, 1600 ft. IMPRESSION: This is a normal walk study without desaturation.
--- NOTE | 2020-08-31 08:39 | WPDPFTINT ---
PFT Procedure Performed PFT Procedure Performed Spirometry with Pre/Post Bronchodilator Plethysmography (Lung Vol) Diffusing Cap (DLCO) Flow Vol Loop PFT Interpretation DOS: 08/30/2020 REQUESTING: Dr Land REASON FOR TESTING: Lung nodule PULMONARY FUNCTION TESTS Results are reliable and reproducible. Spirometry: The FEV1 is 89% predicted, 3.06 L normal. The FVC is 105% normal. The FEV1/FVC ratio is 65%, below normal, consistent with airflow obstruction. [id number] is 63%. After bronchodilator administration there is a 20% increase in the FEV1, and this is greater than 200 mL. Lung volumes: Total lung capacity is normal 111%. Vital capacity is 112% normal. Residual volume is 115%. The RV/TLC is 35%. Airway resistance is increased mildly, 148% predicted. Diffusion: DLCO is 95% normal. Flow volume loop: Normal flow volume loop. IMPRESSION: Mild obstructive ventilatory defect with excellent response to bronchodilator, normal lung volumes and diffusion. Briseyda Land MD
== END 2020-08-30 08:09 | disposition home or self-care (01) ==
PROVIDERS: PCP Internal Medicine; Visit Provider Internal Medicine Critical Care Medicine
DX: R91.1 Solitary pulmonary nodule (principal); R94.2 Abnormal results of pulmonary function studies
CPT/HCPCS: 94060; 94618; 94726; 94729

== ENCOUNTER 2020-10-10 12:32 | Outpatient (CLI) | payer SELFPAY ==
[2020-10-10 12:58] LABS: CRP 0.5 mg/dL (<1.0); Creatine Kinase 81 U/L (55-170)
[2020-10-15 11:18] LABS: ANA Cascade Screen Negative (Negative)
== END 2020-10-10 12:33 | disposition home or self-care (01) ==
PROVIDERS: PCP Internal Medicine; Visit Provider Internal Medicine Critical Care Medicine
DX: M79.10 Myalgia, unspecified site (principal)
CPT/HCPCS: 36415; 82550; 86038; 86140

== ENCOUNTER 2021-01-16 09:11 | Outpatient (CLI) | payer BC, SELFPAY ==
[2021-01-16 09:56] LABS: Anion Gap 7 mmol/L (8-16); Blood Urea Nitrogen 26 mg/dL (9-20); Calcium 9.4 mg/dL (8.4-10.2); Carbon Dioxide 30 mmol/L (22-30); Chloride 104 mmol/L (98-107); Cholesterol 273 mg/dL (0-200); Estimated Glomerular Filt Rate > 60; Glucose 109 mg/dL (65-110); HDL Direct 42 mg/dL; Potassium 4.3 mmol/L (3.4-5.0); Sodium 141 mmol/L (137-145); Triglycerides 192 mg/dL (<150)
[2021-01-16 10:07] LABS: LDL Cholesterol Direct 162 mg/dL
[2021-01-16 10:27] LABS: Prostate Specific Antigen 1.4 ng/mL (< OR = 4.0)
== END 2021-01-16 09:12 | disposition home or self-care (01) ==
LOC: ANHLAB 09:13
PROVIDERS: PCP Internal Medicine; Visit Provider Internal Medicine
DX: I10 Essential (primary) hypertension (principal); Z13.220 Encounter for screening for lipoid disorders; Z12.5 Encounter for screening for malignant neoplasm of prostate
CPT/HCPCS: 36415; 80048; 80061; 84153; G0103

== ENCOUNTER 2021-01-19 04:38 | Observation (INO) | payer BC, SELFPAY ==
[2021-01-19] VITALS (13 sets, daily range): BP systolic 117–162; BP diastolic 73–105; PULSE 57–84; RESP 10–19; TEMP 36.1; O2SAT 95–98; BMI 30.3
--- NOTE | ~2021-01-19 | CT_ITS ---
EXAMINATION: CTA chest abdomen pelvis DATE: 01/19/2021 06:05 INDICATION: Chest pain, history of aortic aneurysm TECHNIQUE: Computed tomographic angiography (CTA) of the chest, abdomen, and pelvis was performed wit hout and with 100 mL Omnipque-350 intravenous contrast. Maximum intensity projection 3D-reconstructio ns of the aorta and other arteries were constructed by the technologist on a separate workstation. Th e dose-length product (DLP) was 1591.38 mGy-cm. Automated exposure control and iterative reconstructi on technique were employed. COMPARISON: 08/03/2020, 07/07/2020, 07/01/2020 FINDINGS: CHEST CTA: There is fusiform enlargement of the ascending aorta which measures 4.4 x 4.3 cm at the level of the main pulmonary artery. There is no dissection. A 13 mm nodule of the left upper lobe is stable in siz e and has been previously biopsied. No new pulmonary nodules are identified. The lungs are free of ac floresita opacities. There is no pleural effusion or pneumothorax. Left hilar lymphadenopathy persists with out significant change. The heart size is normal. ABDOMEN AND PELVIS CTA: The abdominal aorta is normal without aneurysm or dissection. The superior mesenteric artery, inferio r mesenteric artery, and celiac axis are unremarkable. Single renal arteries are present bilaterally. The common, external, and internal iliac arteries are unremarkable. The liver, spleen, pancreas, gal lbladder, and adrenal glands are normal. The kidneys are unremarkable. No pathologically enlarged abd ominal or pelvic lymph nodes are identified. There is no free intraperitoneal gas or evidence of mabel l obstruction. There is mild lumbar spondylosis. IMPRESSION: 1. Fusiform enlargement of the ascending aorta without dissection of the thoracic or abdominal aorta. 2. Stable right upper lobe nodule with previous biopsy demonstrating caseating granuloma. 3. Stable left hilar lymphadenopathy, likely reactive. Reviewed, dictated and finalized at location A. IMPRESSION: 1. Fusiform enlargement of the ascending aorta without dissection of the thorac ic or abdominal aorta. 2. Stable right upper lobe nodule with previous biopsy demonstrating caseating granuloma. 3. Stable left hilar lymphadenopathy, likely reactive.
--- NOTE | ~2021-01-19 | XR_ITS ---
EXAMINATION: XR chest 1V portable INDICATION: Sternal chest pain TECHNIQUE: Portable AP chest at 0456 hours COMPARISON: 08/17/2020 FINDINGS: The lungs are free of acute opacities. There is no pleural effusion or pneumothorax. The ca rdiomediastinal silhouette is normal. IMPRESSION: 1. No acute cardiopulmonary abnormality. Reviewed, dictated and finalized at location A.
--- NOTE | 2021-01-19 04:49 | ECG_ITS ---
Measurements Intervals [place] Rate: 72 P: 25 VT: 187 QRS: -18 QRSD: 89 T: 19 QT: 371 QTc: 406 Interpretive Statements SINUS RHYTHM EARLY PRECORDIAL R/S TRANSITION BASELINE ARTIFACT- I, II BORDERLINE ECG Electronically Signed On 01-19-2021 6:42:22 CDT by Brendon Mitchell D.O.
[2021-01-19] MEDS: NITROGLYCERIN SL 0.4 MG TABLET SUBLINGUAL (04:58)
--- NOTE | 2021-01-19 05:05 | ED.CHESTPAIN ---
HPI - Chest Pain General Chief Complaint: Chest Pain Stated Complaint: CP Time Seen by Provider: 01/19/21 04:41 Source: patient and EMS Mode of arrival: EMS Limitations: no limitations History of Present Illness HPI narrative: This is a 60 year old male with history of hypertension and thoracic aortic aneurysm who presents for evaluation of chest pain. Patient describes pain as squeezing pain across his entire chest with bilateral shoulder numbness. He was awaken from his sleep with this pain. He was cold and clammy but denies shortness of breath, nausea or vomiting. He took aspirin 81 mg immediately and his called 911. He states his gave him an additional aspirin 325 mg before EMS arrival. His pain was 8/10 and his pain was subsiding by the time EMS arrived. EMS gave patient nitro glycer spray x 1. He rates his pain as 3/10 now. He reports he has similar pain 1 week ago that resolved after a few minutes. His pain does not seem to be worse with exertion. Dr. Pickett is his outside dealer sales representative for routine follow up of his aneursym. He reports having normal stress test 1 year ago. He denies abdominal pain. Related Data Home Medications Medication Instructions Recorded Confirmed aspirin 81 mg tablet,delayed 81 mg PO QPM 08/03/19 08/11/20 release Adult Multivitamin Gummies 2 tablet PO DAILY 06/30/20 08/11/20 cholecalciferol (vitamin D3) 100 mcg PO DAILY 06/30/20 08/11/20 [Vitamin D3] omeprazole 20 mg PO DAILY 06/30/20 08/11/20 cyanocobalamin (vitamin B-12) 5,000 mcg PO DAILY 07/01/20 08/11/20 Allergies Allergy/AdvReac Type Severity Reaction Status Date / Time amoxicillin Allergy Unknown Unknown Verified 10/10/20 11:13 venom-wasp protein Allergy Unknown Verified 10/10/20 11:13 Review of Systems Review of Systems: All systems reviewed & are unremarkable except as noted in HPI and below PMFSH Past Medical History Medical History Aortic aneurysm Chronic GERD KAMRAN (obstructive sleep apnea) Tobacco use disorder Surgical History Surgical History H/O colonoscopy with polypectomy S/P tonsillectomy and adenoidectomy Family History Family History Mother History of blood clots Acute myocardial infarction Congestive heart failure Father Hypertension Cerebrovascular accident Failure to thrive Son Epilepsy Sibling Aortic aneurysm Social History Social History Social History: The patient stated that he has been smoking again for the last 9 months 1 pack a cigarettes a day. He decided to quit again on Easter. Prior to that he had quit for year and half. The patient occasionally has a glass of wine. The patient is and desires to have his is the durable power civil rights attorney for healthcare. 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 He has 4 children. He does not use any marijuana or illicit drugs. The patient stated that he would like to be a full code but would not like to live in a vegetative state. He did understand the code status earlier and after I explained to him he decided he wants to be a full code. He just does not want to live on a ventilator in a vegetative state. Smoking packs per day: 1 Smoking cigarettes per day: 20.0 Years smoked: 6 Smoking pack-years: 6.00 Smoking status: Former smoker (Quit June 2020) Tobacco type: cigarettes Second hand tobacco smoke exposure: No Smoking end date: 06/25/20 Alcohol intake: current Alcohol use details: Social Substance use: never Substance use type: does not use Gender identity (if verbalized by the patient): Male Sexual Orientation (if Verbalized by the Patient): Straight or Heterosexual Spiritual care concerns: No Exam Const: General: no
[2021-01-19 05:17] LABS: Basophils Absolute Auto 0.1 K/mm3 (0.0-0.1); Basophils Percent Auto 0.9 % (0.2-1.2); Eosinophils Absolute Auto 0.2 K/mm3 (0-0.3); Hematocrit 47.2 % (42.0-52.0); Hemoglobin 15.9 g/dL (14.0-18.0); Immature Granulocyte Absolute 0.02 K/mm3 (0.00-0.031); Immature Granulocyte Percent A 0.4 % (0-0.5); Lymphocytes Absolute Auto 2.15 K/mm3 (0.9-3.2); Lymphocytes Percent Auto 39.2 % (18.3-44.2); Mean Corpuscular HGB Conc 33.7 g/dl (32-36); Mean Corpuscular Hemoglobin 29.7 pg (26-34); Mean Corpuscular Volume 88.1 fl (80-100); Mean Platelet Volume 9.3 fl (7.4-10.4); Monocytes Absolute Auto 0.5 K/mm3 (0.1-0.6); Monocytes Percent Auto 9.1 % (2.6-8.5); Neutrophils Absolute Auto 2.5 K/mm3 (1.3-6.7); Neutrophils Percent Auto 46.4 % (45.5-73.1); Platelet Count Result 193 k/mm3 (150-375); Red Blood Count 5.36 M/mm3 (4.6-6.20); Red Cell Distribution Width 12.7 % (11.5-14.5); White Blood Count 5.5 K/mm3 (4.5-10.0)
[2021-01-19 05:43] LABS: Troponin I < 0.012 ng/mL (0.000-0.034)
[2021-01-19 05:44] LABS: Alanine Aminotransferase 23 U/L (4-50); Alkaline Phosphatase 70 U/L (38-126); Anion Gap 7 mmol/L (8-16); Aspartate Amino Transferase 20 U/L (17-59); Bilirubin,Total 0.5 mg/dL (0.2-1.3); Blood Urea Nitrogen 22 mg/dL (9-20); Calcium 9.9 mg/dL (8.4-10.2); Carbon Dioxide 27 mmol/L (22-30); Chloride 108 mmol/L (98-107); Estimated CRCL calculation 64 ml/min; Estimated Glomerular Filt Rate > 60; Glucose 107 mg/dL (65-110); Lipase 54 U/L (23-300); Sodium 142 mmol/L (137-145)
[2021-01-19 06:04] LABS: INR 0.9
[2021-01-19 06:05] LABS: Partial Thromboplastin Time 27.3 SECONDS (22.3-36.8)
[2021-01-19 06:27] LABS: D Dimer 0.27 ug/mL (<0.48)
[2021-01-19 08:09] LABS: Troponin I < 0.012 ng/mL (0.000-0.034)
[2021-01-19 11:07] LABS: Troponin I < 0.012 ng/mL (0.000-0.034)
[2021-01-19] MEDS: amLODIPine BESYLATE 5 MG TABLET PO (11:22)
[2021-01-19] MEDS: METOPROLOL TARTRATE 25 MG TABLET PO (11:22)
[2021-01-19] MEDS: PANTOPRAZOLE 40 MG TABLET PO (11:23)
--- NOTE | 2021-01-19 12:22 | PM.IMHP ---
H&P: HPI History of Present Illness Date/Time: 01/19/21 12:22 Chief Complaint: Chest pain Narrative: This is a 60-year-old man who is known to me from office follow-up because of a thoracic aortic aneurysm. He presented to the emergency room early this morning when he was awakened in the middle of the night with some chest pain for which he was brought in by ambulance after his called 911. Patient states that he was in his usual state of good health when he was dreaming in the middle of the night. He then started to experience chest pain that he describes as a pressure-like sensation in center of substernal region of a that up into the upper substernal region and then radiating to the right and the left shoulder regions. The discomfort was causing him to become diaphoretic. Because of this his appropriately called 911 he was evaluated and brought into the emergency room. On the way to the hospital he was put on some oxygen which he said provided a little bit of relief he was given a nitroglycerin tablet which provided some additional relieved after a total of about 3 hours the symptom subsided while he was in the emergency department. His electrocardiogram looks normal. He has had 3 sets of troponin levels done they are normal. Since the discomfort resolved at about 630 in the morning he has been free of symptoms. He is not having any exertional chest discomfort he does not exert as much as he has in the past because he said he is developing some arthritic type pain in the knees and some other joints as well. Denies any symptoms of orthopnea PND edema or syncope. I saw this gentleman in 2019 after he moved to this area from [place]. The reason he was seen as a new patient is he is known to have a ascending aortic aneurysm for several years. He had by previous CT angiograms to have an aneurysm to be about 4.8 cm in diameter. Obviously the initial concern in the emergency room was the possibility of dissection. He had had a follow-up CT in the emergency room that was negative for this. He is not known to have any gallbladder disease in the past he denies any symptoms that a occurring in a postprandial fashion. Review of Systems Constitutional: Constitutional: Reports no additional constitutional complaints Eyes: Eyes: Reports no additional eye complaints ENT: Reports system reviewed and no additional complaints, except as documented Cardiovascular: Cardiovascular: Reports as per HPI Respiratory: Respiratory: Reports no additional respiratory complaints Gastrointestinal: Gastrointestinal: Reports no additional gastrointestinal complaints Musculoskeletal: Musculoskeletal: Reports arthralgias Integumentary/Breasts: Skin/Breast: Reports system reviewed and no additional complaints, except as docu Neurologic: Reports system reviewed and no additional complaints, except as documented [facility] Past Medical History Medical History Aortic aneurysm Chronic GERD KAMRAN (obstructive sleep apnea) Tobacco use disorder Surgical History Surgical History H/O colonoscopy with polypectomy S/P tonsillectomy and adenoidectomy Family History Family History Mother History of blood clots Acute myocardial infarction Congestive heart failure Father Hypertension Cerebrovascular accident Failure to thrive Son Epilepsy Sibling Aortic aneurysm Social History Social History Social History: The patient stated that he has been smoking again for the last 9 months 1 pack a cigarettes a day. He decided to quit again on Easter. Prior to that he had quit for year and half. The patient occasionally has a glass of wine. The patient is and desires to have his is the durable power deputy county attorney for healthcare. Patient is
--- NOTE | 2021-01-19 13:41 | WPDMODSED ---
Moderate Sedation Note-Pt Data Patient Data Diagnosis: chest pain etiology undetermined Present Complaint: no current complaints Procedure to be performed/Plan: coronary angiogram Allergies Allergy/AdvReac Type Severity Reaction Status Date / Time amoxicillin Allergy Unknown Unknown Verified 10/10/20 11:13 venom-wasp protein Allergy Unknown Verified 10/10/20 11:13 Home Medications Medication Instructions Recorded Confirmed Type aspirin 81 mg tablet,delayed 81 mg PO QPM 08/03/19 01/19/21 History release Adult Multivitamin Gummies 2 tablet PO DAILY 06/30/20 01/19/21 History cholecalciferol (vitamin D3) 100 mcg PO DAILY 06/30/20 01/19/21 History [Vitamin D3] omeprazole 20 mg PO DAILY 06/30/20 01/19/21 History cyanocobalamin (vitamin B-12) 5,000 mcg PO DAILY 07/01/20 01/19/21 History amlodipine 5 mg tablet 5 mg PO DAILY #90 tablet 11/28/20 01/19/21 Rx metoprolol tartrate 25 mg tablet 25 mg PO Q12HR #180 tablet 01/04/21 01/19/21 Rx Current Medications: Active Medications Amlodipine Besylate (Amlodipine Besylate 5 Mg Tablet) 5 mg PO DAILY [facility] Last Admin: 01/19/21 11:22 Dose: 5 mg Documented by: Cyanocobalamin (Cyanocobalamin 1,000 Mcg Tablet) 5,000 mcg PO DAILY [facility] Metoprolol Tartrate (Metoprolol Tartrate 25 Mg Tablet) 25 mg PO Q12HR [facility] Last Admin: 01/19/21 11:22 Dose: 25 mg Documented by: Morphine Sulfate (Morphine Sulfate (*Crx) 4 Mg/Ml Inj) 4 mg IV PUSH Q2H PRN PRN Reason: Pain Rated 7-10 Multivitamins/Minerals (Multivits W-Fe,Min Chewable Tablet) 2 tablet PO DAILY [facility] Nitroglycerin (Nitroglycerin Sl 0.4 Mg Tablet) 0.4 mg SUBLINGUAL Q5MIN PRN PRN Reason: Chest Pain Ondansetron HCl (Ondansetron Inj 4 Mg/2 Ml Vial) 4 mg IV PUSH Q4H PRN PRN Reason: Nausea Pantoprazole Sodium (Pantoprazole 40 Mg Tablet) 40 mg PO DAILY [facility] Stop: 02/19/21 08:59 Last Admin: 01/19/21 11:23 Dose: 40 mg Documented by: Vitamin D (Cholecalciferol 1,000 Units Tablet) 4,000 units PO DAILY [facility] Sedation/Anesthesia: No previous sedation/anesthesia problems (including family history). [facility] Past Medical History Medical History Aortic aneurysm Chronic GERD KAMRAN (obstructive sleep apnea) Tobacco use disorder Surgical History Surgical History H/O colonoscopy with polypectomy S/P tonsillectomy and adenoidectomy Family History Family History Mother History of blood clots Acute myocardial infarction Congestive heart failure Father Hypertension Cerebrovascular accident Failure to thrive Son Epilepsy Sibling Aortic aneurysm Social History Social History Social History: The patient stated that he has been smoking again for the last 9 months 1 pack a cigarettes a day. He decided to quit again on Easter. Prior to that he had quit for year and half. The patient occasionally has a glass of wine. The patient is and desires to have his is the durable power boatbuilder apprentice wood for healthcare. 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 He has 4 children. He does not use any marijuana or illicit drugs. The patient stated that he would like to be a full code but would not like to live in a vegetative state. He did understand the code status earlier and after I explained to him he decided he wants to be a full code. He just does not want to live on a ventilator in a vegetative state. Smoking packs per day: 1 Smoking cigarettes per day: 20.0 Years smoked: 6 Smoking pack-years: 6.00 Smoking status: Former smoker (Quit June 2020) Tobacco type: cigarettes Second hand tobacco smoke exposure: No Smoking end date: 06/25/20 Alcohol intake: current Alcohol use details: Social Substance use: never Substance use type: does not use Gender identity (i
--- NOTE | 2021-01-19 14:25 | WPDCARDPROC ---
Cardiac Cath Procedure Note Date of procedure:: 01/19/21 Performing physician:: Hernan Pickett MD Indication:: Chest pain Brief clinical history:: this is a 60-year-old man who is known to have a thoracic aortic aneurysm who entered the hospital earlier today with some chest pain that occurred in the middle of the night and subsided spontaneously earlier this morning. His thoracic aortic aneurysm appears to be stable by CT. The possibility of concurrent coronary disease has been considered and in this setting an angiogram has been recommended. Because he received some contrast this morning it is not my a plan to perform a left ventriculogram. He is known to have good LV function based on recent outpatient echocardiography. Procedure Procedure performed:: Coronary angiogram Angio-Seal to right femoral artery Sedation/Medication given:: fentanyl 50 mg Versed 2 mg case start time 2:05 p.m. case end time 2:22 p.m. sedation provided by Mariama Davis RN trained observer Access site:: right femoral artery Estimated blood loss:: 15 cc Procedure note:: patient was brought to the cardiac catheterization lab in the postabsorptive state the right femoral triangle was prepared in normal fashion the was provided with 1% lidocaine infiltrated locally. Following this the right common femoral artery was punctured using the modified Seldinger technique. A 5 [place] vascular sheath was placed. After this left heart catheterization was carried out I used a 5 [place] FL4 catheter to engage and inject the left coronary artery in standard projections. 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 I then changed for a no Torque catheter which also was unsuccessful after this I used a AL1 catheter which engaged the anomalous RCA for angiographic injection in orthogonal projections. After this the case was terminated. An angiogram was done of the femoral artery through the sheath and then a 6 [place] Angio-Seal device was deployed with a good hemostatic result. After this the patient was taken to the holding area for post cath recovery. He had no procedural complications and left the laboratory mechanical technician with no sign of groin hematoma. Findings:: Hemodynamics included aortic pressure at 129/72. The left ventricle was not entered during this procedure the left main coronary artery is nicely patent the left anterior descending is a medium caliber artery extending down to the apex the LAD and its diagonal and septal branches are angiographically normal. The circumflex is a medium caliber vessel giving rise to the marginal branches the circumflex system is smooth and angiographically normal. The anomalous right coronary was injected with the AL1 catheter is of moderate caliber dominant to the posterior circulation and is angiographically unremarkable. Conclusion:: 1. 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 chest pain syndrome is not related to myocardial ischemia based on these findings Hernan Pickett MD [facility]
--- NOTE | 2021-01-19 14:33 | PM.SD2 ---
Same Day Admit/Disch: HPI History of Present Illness Chief complaint: Chest pain Narrative: Gabe Chowdary is a 60 year old male who presented to the emergency room early this morning when he was awakened in the middle of the night with some chest pain for which he was brought in by ambulance after his called 911. Patient states that he was in his usual state of good health when he was dreaming in the middle of the night. He then started to experience chest pain that he describes as a pressure-like sensation in center of substernal region of a that up into the upper substernal region and then radiating to the right and the left shoulder regions. The discomfort was causing him to become diaphoretic. Because of this his appropriately called 911 he was evaluated and brought into the emergency room. On the way to the hospital he was put on some oxygen which he said provided a little bit of relief he was given a nitroglycerin tablet which provided some additional relieved after a total of about 3 hours the symptom subsided while he was in the emergency department. His electrocardiogram looks normal. He has had 3 sets of troponin levels done they are normal. Since the discomfort resolved at about 630 in the morning he has been free of symptoms. He is not having any exertional chest discomfort he does not exert as much as he has in the past because he said he is developing some arthritic type pain in the knees and some other joints as well. Denies any symptoms of orthopnea PND edema or syncope. I saw this gentleman in 2019 after he moved to this area from [place]. The reason he was seen as a new patient is he is known to have a ascending aortic aneurysm for several years. He had by previous CT angiograms to have an aneurysm to be about 4.8 cm in diameter. Obviously the initial concern in the emergency room was the possibility of dissection. He had had a follow-up CT in the emergency room that was negative for this. He is not known to have any gallbladder disease in the past he denies any symptoms that a occurring in a postprandial fashion. [facility] Past Medical History Medical History Aortic aneurysm Chronic GERD KAMRAN (obstructive sleep apnea) Tobacco use disorder Surgical History Surgical History H/O colonoscopy with polypectomy S/P tonsillectomy and adenoidectomy Family History Family History Mother History of blood clots Acute myocardial infarction Congestive heart failure Father Hypertension Cerebrovascular accident Failure to thrive Son Epilepsy Sibling Aortic aneurysm Social History Social History Social History: The patient stated that he has been smoking again for the last 9 months 1 pack a cigarettes a day. He decided to quit again on Easter. Prior to that he had quit for year and half. The patient occasionally has a glass of wine. The patient is and desires to have his is the durable power behavior therapist for healthcare. 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 He does not use any marijuana or illicit drugs. The patient stated that he would like to be a full code but would not like to live in a vegetative state. He did understand the code status earlier and after I explained to him he decided he wants to be a full code. He just does not want to live on a ventilator in a vegetative state. Smoking packs per day: 1 Smoking cigarettes per day: 20.0 Years smoked: 6 Smoking pack-years: 6.00 Smoking status: Former smoker (Quit June 2020) Tobacco type: cigarettes Second hand tobacco smoke exposure: No Smoking end date: 06/25/20 Alcohol intake: current Alcohol use details: Social Substance use: never Substance use
== END 2021-01-19 17:30 | disposition home or self-care (01) ==
LOC: ANHED 07:55 → ANHCPC 08:21
PROVIDERS: Specialist; Admitting Provider Internal Medicine Cardiovascular Disease; Emergency Provider General Practice; PCP Internal Medicine; Visit Provider Internal Medicine Cardiovascular Disease
PROC: (CPT 93454; principal; 2021-01-19 14:00)
DX: R07.9 Chest pain, unspecified (principal); I71.2 Thoracic aortic aneurysm, without rupture; K21.9 Gastro-esophageal reflux disease without esophagitis; G47.33 Obstructive sleep apnea (adult) (pediatric); Z87.891 Personal history of nicotine dependence
CPT/HCPCS: 36415; 71045; 71275; 74174; 80048; 80076; 83690; 84484; 85025; 85380; 85610; 85730; 93005; 93454; 99285; A9270; C1760; C1887; C1894; G0269; G0378; J1644; J2250; J3010; J7040; Q9967

== ENCOUNTER 2021-02-16 10:43 | Outpatient (CLI) | payer BC, SELFPAY ==
--- NOTE | ~2021-02-16 | US_ITS ---
US abdomen complete EXAMINATION: US Abdomen Complete INDICATION: Abdominal pain PROCEDURE: Realtime High Resolution abdomen ultrasound. COMPARISON: No prior studies for comparison FINDINGS: Gallbladder within normal limits. No gallstones, pericholecystic fluid, gallbladder wall t hickening or biliary dilatation. Common bile duct measures 3 mm. Liver echotexture is increased, consistent with fatty infiltration. Pancreas within normal limits. Pancreatic tail is obscured by bowel gas. Spleen is unremarkeable. Renal echotexture is within kirill l limits bilaterally without hydronephrosis, contour deforming mass or renal stone. Right kidney martin ures 11.4 cm. Left kidney measures 10.8 cm. Visualized aspects of the aorta and IVC are within normal limits. Portal vein is patent. No sonograph ic Garvin's sign indicated by the technologist. IMPRESSION: 1: Hepatic steatosis. Reviewed, dictated and finalized at location A. 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
== END 2021-02-16 10:44 | disposition home or self-care (01) ==
LOC: ANHIMG 10:46
PROVIDERS: PCP Internal Medicine; Visit Provider Nurse Practitioner
DX: R10.9 Unspecified abdominal pain (principal); K76.0 Fatty (change of) liver, not elsewhere classified
CPT/HCPCS: 76700

== ENCOUNTER 2021-07-18 08:51 | Outpatient (CLI) | payer BC, SELFPAY ==
--- NOTE | ~2021-07-18 | CT_ITS ---
EXAMINATION: CTA chest DATE: 07/18/2021 09:24 INDICATION: Chest pain. History of aortic aneurysm. TECHNIQUE: Computed tomography (CT) of the chest was performed with 100 cc Omnipaque 350 intravenous contrast. Automated exposure control and iterative reconstruction technique were employed. Exam dose: 481.06 mGy-cm total exam DLP. COMPARISON: 07/01/2020 CTA chest FINDINGS: Ascending aorta diameter and appears stable since 01/19/2021, measuring up to 4.4-4.5 cm ma ximal diameter.. Aortic arch diameter measures up to 2.6 cm, stable since 01/19/2021. Normal heart size. No pericardial or pleural effusion. No significant change of left hilar and mediastinal nodes since 01/19/2021. Stable 12 mm anterior segment left upper lobe nodule. Calcified right upper lobe pulmonary granuloma. No pulmonary infiltrate or consolidation. No interval or enlarging pulmonary mass lesion. No suspicious osteolytic or osteoblastic lesions are noted. IMPRESSION: Stable size of thoracic aorta since 01/19/2021, ascending aorta again measuring approxim ately 4.4-4.5 cm diameter stable or slightly diminished size of chronic left upper lobe nodule, repor tedly previously biopsied with benign pathology Reviewed, dictated and finalized at Location [facility]. Reviewed, dictated and finalized at location A. IMPRESSION: Stable size of thoracic aorta since 01/19/2021, ascending aorta ag ain measuring approximately 4.4-4.5 cm diameter stable or slightly diminished s ize of chronic left upper lobe nodule, reportedly previously biopsied with simeon gn pathology
[2021-07-18 09:19] LABS: Estimated Glomerular Filt Rate > 60
== END 2021-07-18 08:52 | disposition home or self-care (01) ==
PROVIDERS: PCP Internal Medicine; Referring Provider Internal Medicine Critical Care Medicine; Visit Provider Specialist
DX: I71.4 Abdominal aortic aneurysm, without rupture (principal)
CPT/HCPCS: 71275; Q9967

== ENCOUNTER 2021-10-17 10:50 | Outpatient (CLI) | payer BC, SELFPAY ==
[2021-10-17 11:40] LABS: Alanine Aminotransferase 24 U/L (6-50); Albumin Level 4.3 g/dL (3.5-5.1); Alkaline Phosphatase 59 U/L (38-126); Anion Gap 7 mmol/L (8-16); Aspartate Amino Transferase 23 U/L (17-59); Bilirubin,Total 0.9 mg/dL (0.2-1.3); Blood Urea Nitrogen 17 mg/dL (9-20); Calcium 9.3 mg/dL (8.4-10.2); Carbon Dioxide 29 mmol/L (22-30); Chloride 103 mmol/L (98-107); Cholesterol 235 mg/dL (0-200); Estimated Glomerular Filt Rate > 60; Glucose 91 mg/dL (65-110); HDL Direct 53 mg/dL; Potassium 4.4 mmol/L (3.4-5.0); Sodium 139 mmol/L (137-145); Triglycerides 99 mg/dL (<150)
[2021-10-17 11:51] LABS: LDL Cholesterol Direct 137 mg/dL
[2021-10-17 12:12] LABS: Vitamin D 25 Hydroxy 78.8 ng/mL
== END 2021-10-17 10:51 | disposition home or self-care (01) ==
LOC: ANHLAB 10:52
PROVIDERS: PCP Internal Medicine; Visit Provider Internal Medicine
DX: Z13.21 Encounter for screening for nutritional disorder (principal); E78.5 Hyperlipidemia, unspecified
CPT/HCPCS: 36415; 80053; 80061; 82306

== ENCOUNTER 2023-12-30 07:27 | Outpatient (CLI) | payer MEDICARE, OTHER, SELFPAY ==
--- NOTE | ~2023-12-30 | CT_ITS ---
CTA chest Ordering provider: Hernan Pickett MD History: 63 years Male with . AAA W/O RUPTURE . Comparison: July 18, 2022 Technique: CT angiogram chest was performed following timed intravenous injection of contrast. Thin s lice axial images and reformatted coronal images were obtained. Three dimensional reformatted images of the chest were also obtained using a [employer] workstation. . Automated exposure control and iterati ve reconstruction technique were employed. The dose-length product was 794.41 mGy-cm. 100 mL Omnipaqu e 350 was given IV. Findings: PULMONARY ARTERIES: No pulmonary embolus. VISUALIZED THORACIC INLET: Normal. MEDIASTINUM: Aorta/coronary arteries: Ascending aorta measures 4.2 cm. No evidence of dissection. Heart/other: The heart is not enlarged. Lymph nodes: No mediastinal or hilar adenopathy. LUNGS: Nodule is seen in the left upper lobe unchanged from previous examination. No pulmonary masses. No in filtrates or effusions. No pneumothorax. Dependent atelectatic changes. VISUALIZED UPPER ABDOMEN: Slightly thickened wall of the stomach. Clinical correlation advised. Other hill, the visualized upper abdomen is normal. MUSCULOSKELETAL: Soft tissues: The superficial soft tissues are normal. Bones: Age appropriate degenerative changes of the spine. Small sclerotic lesions are seen in the left side of the T11 and right side of T6 unchanged from prev ious examination. IMPRESSION: 1. Ascending aorta measures 4.2 cm unchanged from previous examination examination. 2. No evidence of pulmonary embolism. 3. Nodule in the left lower lobe unchanged from previous examination. Reviewed, dictated and finalized at location A. IMPRESSION: 1. Ascending aorta measures 4.2 cm unchanged from previous examination examina tion. 2. No evidence of pulmonary embolism. 3. Nodule in the left lower lobe unchanged from previous examination.
[2023-12-30 08:23] LABS: Estimated Glomerular Filt Rate > 60
== END 2023-12-30 07:28 | disposition home or self-care (01) ==
PROVIDERS: PCP Internal Medicine; Visit Provider Specialist
DX: I71.9 Aortic aneurysm of unspecified site, without rupture (principal); R91.1 Solitary pulmonary nodule
CPT/HCPCS: 71275; Q9967

== ENCOUNTER 2024-05-12 12:38 | Outpatient (CLI) | payer MEDICARE, OTHER, SELFPAY ==
--- NOTE | ~2024-05-12 | XR_ITS ---
XR abdomen/kub 1V 05/12/2024 12:50 Indication: Personal history of urinary stone Procedure: KUB Comparison: 07/04/2020 Findings: Stable position of calcification at the L2-3 level, most likely ureteral stone. Bowel gas p attern nonobstructive. Moderate colonic fecal loading. No acute osseous abnormality. There are pelvic phleboliths. Impression: 1: Stable position of probable left ureteral stone at the L2-3 level. Reviewed, dictated and finalized at location B. 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
== END 2024-05-12 12:39 | disposition home or self-care (01) ==
LOC: MICIMG 12:40
PROVIDERS: PCP Nurse Practitioner Family; Visit Provider Nurse Practitioner Family
DX: Z87.442 Personal history of urinary calculi (principal)
CPT/HCPCS: 74018